=== PATIENT | male | born 1995 | race Caucasian/White ===

== ENCOUNTER 2016-11-04 13:39 | Emergency (ER) | payer OTHER ==
[~2016-11-04] VITALS: Ht 188 cm; Wt 99.8 kg
--- OUTSIDE RECORDS SUMMARY | 2016-11-04 13:45 | XMS REPORT ---
Author KAVITA Sullivan [facility] eClinicalWorks Address Unknown Phone Unavailable Care Team Providers Care Driller'S Offsider Name Role Phone KAVITA RAZA CP Unavailable Allergies, Adverse Reactions, Alerts Substance Reaction Event Type N.K.D.A. Info Not Available Non Drug Allergy Problems Problem Type Condition Code Onset Dates Condition Status Assessment Non-intractable vomiting with nausea, unspecified vomiting type R11.2 Active Assessment Acute upper respiratory infection, unspecified J06.9 Active Medications Medication Code System Code Instructions Start Date End Date Status Dosage Zofran ODT [facility] [address]-46 8 MG Orally 3 times a day Jul 24, 2016 1 tablet on the tongue and allow to dissolve Procedures Procedure Coding System Code Date Office Visit, Est Pt., Level 3 CPT-4 99145 Jul 24, 2016 INFLUENZA ASSAY W/OPTIC CPT-4 50615 Jul 24, 2016 Vital Signs Date/Time: Jul 24, 2016 Cardiac Monitoring Heart Rate 100 bpm Weight 227.0 lbs Height 74.0 in BMI 29.14 Index Blood Pressure Diastolic 92 mmHg Blood Pressure Systolic 130 mmHg Results Name Result Date Reference Range Unit Abnormality Flag INFLUENZA A & B (IN HOUSE) ----Exp date [id number] ----INFLUENZA A Negative [id number] ----INFLUENZA B Negative [id number] ----Control + [id number] ----Lot # [id number] Summary Purpose eClinicalWorks Submission
[2016-11-04] MEDS ORDERED: morphine INJ 10 MG/ML 1ML (SYR OR VIAL) IM STA (17:00)
[2016-11-04] MEDS ORDERED: BUPIVACAINE 0.5% 30 ML (SENSORCAINE) VIAL INJ ONE (17:00)
[2016-11-04] MEDS ORDERED: TETANUS,DIPTH,PERTUSS P/F (BOOSTRIX) 0.5 ML VIAL IM STA (17:00)
[2016-11-04] MEDS ORDERED: LIDOCAINE 2% 20 ML (XYLOCAINE) VIAL INJ ONE (17:00)
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
--- NOTE | 2016-11-04 19:09 | Diagnostic Imaging Report ---
PROCEDURE: CT head and CT cervical spine without contrast. TECHNIQUE: Multiple contiguous axial images were obtained through the brain and cervical spine without the use of intravenous contrast. Sagittal and coronal reformations through the cervical spine were then performed. INDICATION: Trauma head and neck pain. COMPARISON: None. CT head: Ventricles are normal in size, shape and position. There is no midline shift or mass effect. There is no hemorrhage or evidence of acute ischemia. The osseous structures, paranasal sinuses and mastoids are clear. IMPRESSION: Negative CT head. CT cervical spine: Alignment is normal. There is no subluxation or fracture. No degeneration identified. No paraspinous mass. IMPRESSION: Negative CT cervical spine. Dictated by: Dictated on workstation # [id number]
[2016-11-04] MEDS ORDERED: CYCL10TA9 PO (20:10)
[2016-11-04] MEDS ORDERED: HYDR-3812 PO (20:10)
[2016-11-04] MEDS ORDERED: HYDROcodone/APAP 5 MG/325 MG (LORTAB) TAB PO STA (20:28)
[2016-11-04] MEDS ORDERED: CYCLOBENZAPRINE 10 MG (FLEXERIL) TAB PO STA (20:28)
--- NOTE | 2016-11-04 21:04 | Diagnostic Imaging Report ---
INDICATION: Right hand injury and pain COMPARISON: None FINDINGS: Three views of the right hand demonstrate no fracture or dislocation. The articular surfaces are normal. There is no foreign body. IMPRESSION: No fracture or dislocation. Dictated by: Dictated on workstation # [id number]
[2016-11-04 21:28] VITALS: BP 122/78
== END 2016-11-04 21:28 | disposition home or self-care (01) ==
LOC: ER 13:42
DX: S61.214A Laceration without foreign body of right ring finger without damage to nail, initial encounter (principal); S13.9XXA Sprain of joints and ligaments of unspecified parts of neck, initial encounter; V43.52XA Car driver injured in collision with other type car in traffic accident, initial encounter; Y92.414 Local residential or business street as the place of occurrence of the external cause; Y99.8 Other external cause status
CPT/HCPCS: 12042; 70450; 72125; 73130; 90471; 90715; 96372

== ENCOUNTER 2016-11-18 18:09 | Emergency (ER) | payer OTHER ==
[~2016-11-18] VITALS: Ht 188 cm; Wt 99.8 kg
[~2016-11-18 18:09] MED LIST: CYCL10TA9 PO; HYDR-3812 PO
[2016-11-18 18:29] VITALS: BP 118/89
== END 2016-11-18 18:29 | disposition home or self-care (01) ==
LOC: EDUNIT# 18:09 → ER 18:10
DX: S61.214D Laceration without foreign body of right ring finger without damage to nail, subsequent encounter (principal)